=== PATIENT | female | born 1975 | race Caucasian/White ===

== ENCOUNTER 2017-04-05 09:29 | Emergency (ER) | payer OTHER ==
[~2017-04-05] VITALS: Ht 160 cm; Wt 81.6 kg
[2017-04-05 10:21] LABS: BILIRUBIN NEGATIVE (NEGATIVE); BLOOD 2+ (NEGATIVE); CLARITY CLOUDY (CLEAR); COLOR YELLOW (YELLOW); GLUCOSE NEGATIVE (NEGATIVE); KETONE NEGATIVE (NEGATIVE); LEUKO ESTERASE 1+ (NEGATIVE); NITRITE NEGATIVE (NEGATIVE); PH 5.5 (5.0-9.0); SPECIFIC GRAVITY 1.025 (1.005-1.030); UROBILINOGEN 0.2 E.U./dl (0.2-1.0)
[2017-04-05 10:30] LABS: BACTERIA 3+; EPITHELIAL CELLS 15-20; WBC 21-30 wbc/hpf (0-5)
[2017-04-05] MEDS ORDERED: MACROBID100 M1 PO (10:55)
[2017-04-05] MEDS ORDERED: PYRIDIUM200 M1 PO (10:55)
== END 2017-04-05 11:03 | disposition home or self-care (01) ==
LOC: ED 09:29
PROVIDERS: Physician Assistant
DX: N39.0 Urinary tract infection, site not specified (principal); Z88.1 Allergy status to other antibiotic agents; Z88.2 Allergy status to sulfonamides; Z88.8 Allergy status to other drugs, medicaments and biological substances